=== PATIENT | male | born 2000 | race Caucasian/White ===

== ENCOUNTER 2020-05-29 17:52 | Emergency (ER) | payer OTHER, SELFPAY ==
--- NOTE | 2020-05-29 | XR_ITS ---
EXAMINATION: XR HAND, RIGHT CLINICAL INFORMATION: Pain status post crushing injury COMPARISON: None TECHNIQUE: PA, lateral, and oblique views of the right hand. FINDINGS: There is mild soft tissue swelling around the distal phalanx of the index finger. Bones appear normal. No fracture. Alignment is anatomic. Joint spaces are maintained. No erosions or soft tissue calcifications. IMPRESSION: Soft tissue swelling without fracture.
[2020-05-29 19:55] VITALS: BP 120/57; PULSE 65; RESP 18; TEMP 37.2; O2SAT 97; BMI 21.6
[2020-05-29] MEDS: Lidocaine HCl 1 % MPF 5 ML VIAL SUBCUT (20:39)
--- NOTE | 2020-05-29 21:19 | ED.WOUNDLAC ---
HPI - Wound/Laceration General Chief Complaint: Wound/Laceration Stated Complaint: FINGER LAC - IND Time Seen by Provider: 05/29/20 20:29 Source: patient Mode of arrival: ambulatory Limitations: no limitations History of Present Illness HPI narrative: 19-year-old male presents with a crush injury to the right index finger. He got his finger crushed in a car tire at work. Onset (ago): hour(s) ( Just prior to arrival) Location: other ( right index finger) Place: work Patient tetanus UTD: No Context: accidental Associated symptoms: pain Treatments prior to arrival: bandage Related Data Previous Rx's Medication Instructions Recorded amoxicillin-pot clavulanate 1 tab PO Q12H 10 Days #20 tab 05/29/20 [Augmentin] oxycodone 5 mg PO Q8H PRN #10 cap 05/29/20 Allergies Allergy/AdvReac Type Severity Reaction Status Date / Time No Known Allergies Allergy Verified 05/29/20 19:57 Review of Systems Review of Systems: Constitutional: No Weight loss, No Fever, No Chills, No Night Sweats, No Fatigue, No Malaise ENT/Mouth: No Hearing loss, No Ear Pain, No Nasal Congestion, No Sinus Pain, No Hoarseness, No sore throat, No Rhinorrhea, No Swallowing Difficulty Eyes: No Eye Pain, No Swelling, No Redness, No Foreign Body, No Discharge, No Vision Changes Cardiovascular: No Chest Pain, No SOB, No Dyspnea on Exertion, No Orthopnea, No Edema, No Palpitations Respiratory: No Cough, No Sputum, No Wheezing, No Smoke Exposure, No Dyspnea Gastrointestinal: No Nausea, No Vomiting, No Diarrhea, No Constipation, No abdominal Pain, No Hematochezia, No Melena Genitourinary: no irregular bleeding, No Dysuria, No Urinary Frequency, No Hematuria, No Urinary Incontinence, No Urgency, No Flank Pain, No Urinary Flow Changes, No Hesitancy Musculoskeletal: crush injury to right index finger, multiple skin lacerations to the pad of the index finger. Skin: No Skin Lesions, No rash Neuro: No Weakness, No Numbness, No Paresthesias, No Loss of Consciousness, No Dizziness, No Headache Psych: No Anxiety/Panic, No Depression, No SI/HI/AH/VH, No Social Issues, Heme/Lymph: No Bruising, No Bleeding,No Lymphadenopathy Endocrine: No Polyuria, No Polydipsia, No Temperature Intolerance PMF Past Medical History Attestation statement: The following information was validated with the patient. Medical History (Updated 05/29/20 @ 22:36 by Lubna Horta NP) Patient denies significant medical history Social History Social History Advance Directives: No Advance Directives Information Provided: No Physical Exam Vital Signs and I&O and Narrative: Vital Signs and I&O: Vital Signs Temp 98.9 F 05/29/20 21: Pulse 88 05/29/20 21:20 Resp 18 05/29/20 21:20 BP 128/64 05/29/20 21:20 Pulse Ox 99 05/29/20: Intake & Output 05/29/20 05/29/20 05/30/20 06:59 18:59 06:59 Weight 70.307 kg Body Mass Index 21.6 Appearance: Alert. Oriented X3. No acute distress. Eyes: Pupils equal, round and reactive to light. ENT: Pharynx normal. Neck: Normal inspection. Neck supple. CVS: Normal heart rate and rhythm. Pulses normal. Respiratory: No respiratory distress. Breath sounds normal. Abdomen: Soft and nontender. Skin: Complicated avulsion laceration to the right index finger, approximately 4 cm with 2 flaps. Otherwise Skin warm and dry. Normal skin color. Normal skin turgor. Extremities: no other injuries noted. Neuro: Oriented X 3. No motor deficit. No sensory deficit. Course Course Course Narrative: 19-year-old male presents with crush injury and laceration to the right index finger. We will update his Tdap vaccine, order x-rays x-rays are negative for fracture, laceration repaired, prepped and draped sterile fashion. Patient tolerated procedure well. Approximately 30 mL of blood loss. Brisk capillary refill and neurovascularly intact status post procedure. Patient does understand that he must return in 3 days for wound check. He will take antibiotics as scheduled. Will give pain management oxycodone 5 mg tablets. Procedures Laceration Laceration 1: Site: upper extremity Side (If applicable): right Size (cm): 4 Description: irregular and contaminated Depth: involves muscle layer Local Anesthetic: lidocaine 2% Amount of anesthesia used (mL): 6 Pre-repair: wound explored and irrigated extensively Skin layer closed with: nylon Size (cm): 5-0 Number of sutures: 10 Technique: simple, interrupted Nerve Block Nerve Block 1: Time out performed: Yes Local Anesthetic: lidocaine 2% Amount of anesthesia used (mL): 6 Side: right Nerve Blocks: digital Procedure Successful: Yes Patient Tolerated Procedure: well Complications: none MDM - Wound/Laceration Differential Diagnosis Differential diagnosis: Likely laceration and avulsion of skin Medical Records Attestation: I reviewed the patient's medical records. Lab Data Attestation: I reviewed the patient's lab results. Imaging Data hand x-ray: Attestation: I personally reviewed and interpreted this imaging study as follows: Radiologist's impression: FINDINGS: There is mild soft tissue swelling around the distal phalanx of the index finger. Bones appear normal. No fracture. Alignment is anatomic. Joint spaces are maintained. No erosions or soft tissue calcifications. IMPRESSION: Soft tissue swelling without fracture. Discharge Plan Discharge Clinical Impression: Laceration, Crush accident Patient Disposition: Home, Self-Care Instructions: Diphtheria/Acellular Pertussis/Tetanus Booster Vaccine (Tdap) (By..., Care For Your Stitches (ED), Laceration (ED), Finger Laceration (ED), Crush Injury (ED) Additional Instructions: please return in 3 days for wound evaluation. keep the wound clean and dry, do not soak the finger. You may shower and wash hands as needed. If you notice that your finger changes color, you lose sensation, or the pain and swelling increases please return sooner than 3 days. Thank you for choosing this emergency department for evaluation. Please follow-up with primary care physician as needed. Return to the emergency department for any new, concerning, or worsening symptoms. Prescriptions: New oxycodone 5 mg capsule 5 mg PO Q8H PRN (Reason: pain) Qty: 10 RF: 0 amoxicillin-pot clavulanate [Augmentin] 875-125 mg tablet 1 tab PO Q12H 10 Days Qty: 20 RF: 0 Referrals: Kirstin Marcelo [Physician] - 2 days ( right index crush injury) Interventions: ED Discharge Assessment Last Done: 05/29/20 22:53 Discharge Date/Time: 05/29/20 22:54
[2020-05-29 21:20] VITALS: BP 128/64; PULSE 88; RESP 18; TEMP 37.2; O2SAT 99
[2020-05-29] MEDS: Lidocaine HCl 2 % MPF 5 ML VIAL 10 ML SUBCUT (21:27)
[2020-05-29] MEDS: oxyCODONE HCl Immed Release 5 MG TABLET PO (22:49)
[2020-05-29] MEDS: Amoxicillin/Potassium Clav 875 MG TABLET PO (22:49)
== END 2020-05-29 22:54 | disposition home or self-care (01) ==
PROVIDERS: Emergency Provider Emergency Medicine
DX: S61.220A Laceration with foreign body of right index finger without damage to nail, initial encounter (principal); W23.0XXA Caught, crushed, jammed, or pinched between moving objects, initial encounter; Y93.89 Activity, other specified; Y92.59 Other trade areas as the place of occurrence of the external cause; Y99.0 Civilian activity done for income or pay
CPT/HCPCS: 12002; 73130; 90471; 90715; 99283

== ENCOUNTER 2020-06-03 20:27 | Emergency (ER) | payer OTHER, SELFPAY ==
[2020-06-03 20:56] VITALS: BP 116/44; PULSE 82; RESP 16; TEMP 36; O2SAT 99; BMI 20.9
--- NOTE | 2020-06-03 21:00 | ED.WOUNDLAC ---
HPI - Wound/Laceration General Chief Complaint: Wound/Laceration Stated Complaint: wound check Time Seen by Provider: 06/03/20 21:00 Source: patient Mode of arrival: ambulatory Limitations: no limitations History of Present Illness HPI narrative: 19-year-old male presents for a wound evaluation. He was seen on May 29, 2020 by this [employer] for a crush injury to the finger requiring 10 sutures. He does not describe any fevers, chills, nausea, vomiting, shortness of breath, palpitations, or loss of sensation to the right index finger. He has not taken the dressing down, has been taking his antibiotics as directed, and still has pain medications left from the prescription on 05/29/2020. Onset (ago): day(s) ( ) Location: other ( right index finger) Related Data Previous Rx's Medication Instructions Recorded amoxicillin-pot clavulanate 1 tab PO Q12H 10 Days #20 tab 05/29/20 [Augmentin] oxycodone 5 mg PO Q8H PRN #10 cap 05/29/20 Allergies Allergy/AdvReac Type Severity Reaction Status Date / Time No Known Allergies Allergy Verified 05/29/20 19:57 Review of Systems Review of Systems: Constitutional: No Weight loss, No Fever, No Chills, No Night Sweats, No Fatigue, No Malaise ENT/Mouth: No Hearing loss, No Ear Pain, No Nasal Congestion, No Sinus Pain, No Hoarseness, No sore throat, No Rhinorrhea, No Swallowing Difficulty Eyes: No Eye Pain, No Swelling, No Redness, No Foreign Body, No Discharge, No Vision Changes Cardiovascular: No Chest Pain, No SOB, No Dyspnea on Exertion, No Orthopnea, No Edema, No Palpitations Respiratory: No Cough, No Sputum, No Wheezing, No Smoke Exposure, No Dyspnea Gastrointestinal: No Nausea, No Vomiting, No Diarrhea, No Constipation, No abdominal Pain, No Hematochezia, No Melena Genitourinary: no irregular bleeding, No Dysuria, No Urinary Frequency, No Hematuria, No Urinary Incontinence, No Urgency, No Flank Pain, No Urinary Flow Changes, No Hesitancy Musculoskeletal: No joint pain, No Myalgias, No Joint Swelling Skin: positive laceration to the right index finger treated with sutures on 05/29/2020, No Skin Lesions, No rash Neuro: No Weakness, No Numbness, No Paresthesias, No Loss of Consciousness, No Dizziness, No Headache Psych: No Anxiety/Panic, No Depression, No SI/HI/AH/VH, No Social Issues, Heme/Lymph: No Bruising, No Bleeding,No Lymphadenopathy Endocrine: No Polyuria, No Polydipsia, No Temperature Intolerance [facility] Past Medical History Attestation statement: The following information was validated with the patient. Medical History Patient denies significant medical history Social History Social History Smoking Status: Never smoker Substance Use Type: Marijuana Advance Directives: No Advance Directives Information Provided: Yes Physical Exam Vital Signs: Vital Signs: Vital Signs Temp Pulse Resp BP Pulse Ox 06/03/20 20:56 96.8 F 82 16 116/44 L 99 Body Mass Index 20.9 Appearance: Alert. Oriented X3. No acute distress. Eyes: Pupils equal, round and reactive to light. ENT: Pharynx normal. Neck: Normal inspection. Neck supple. CVS: Normal heart rate and rhythm. Pulses normal. Respiratory: No respiratory distress. Breath sounds normal. Abdomen: Soft and nontender. Skin: right index finger wound healing well, skin flaps well approximated, no indication of erythema or swelling. Brisk capillary refill, neurovascularly intact. Strength 5/5 to all digits. Skin warm and dry. Normal skin color. Normal skin turgor. Extremities: No lower extremity edema. Neuro:No motor deficit. No sensory deficit. Course Course Course Narrative: Wound was evaluated, brisk capillary refill, no indication of infection. Plan of care is for patient to return in 4 days to have sutures removed. Patient verbalized understanding of and agrees to plan of care discharge home. MDM - Wound/Laceration Differential Diagnosis Differential diagnosis: Likely laceration Discharge Plan Discharge Clinical Impression: Visit for wound check Patient Disposition: Home, Self-Care Instructions: Care For Your Stitches (ED) Additional Instructions: your wound is healing well. Please keep it covered with gauze. You may take the dressing off at night. Do not swim or soak the finger until the sutures come out. Please come back in 4 days to have sutures removed. Thank you for choosing this emergency department for evaluation. Please follow-up with primary care physician as needed. Return to the emergency department for any new, concerning, or worsening symptoms. Prescriptions: No Action oxycodone 5 mg capsule 5 mg PO Q8H PRN (Reason: pain) Qty: 10 RF: 0 amoxicillin-pot clavulanate [Augmentin] 875-125 mg tablet 1 tab PO Q12H 10 Days Qty: 20 RF: 0 Stand Alone Forms: Work/School Release Interventions: ED Discharge Assessment Last Done: 06/03/20 21:30 Discharge Date/Time: 06/03/20 21:31
== END 2020-06-03 21:31 | disposition home or self-care (01) ==
LOC: HO.ED 21:08
PROVIDERS: Emergency Provider Internal Medicine
DX: Z48.00 Encounter for change or removal of nonsurgical wound dressing (principal)
CPT/HCPCS: 99282; 99283

== ENCOUNTER 2020-06-08 00:49 | Emergency (ER) | payer OTHER, SELFPAY ==
[2020-06-08 00:54] VITALS: BP 140/46; PULSE 86; RESP 16; TEMP 36; O2SAT 99; BMI 20.9
--- NOTE | 2020-06-08 01:23 | ED_ITS ---
HPI - Wound/Laceration General Chief Complaint: Wound/Laceration Stated Complaint: WOUND CHECK Time Seen by Provider: 06/08/20 01:12 Source: patient Mode of arrival: ambulatory Limitations: no limitations History of Present Illness HPI narrative: this is a 19-year-old male who presents for suture removal of right index finger after having injured it approximately 10 days ago. He denies any associated fevers, chills, redness, purulent discharge at the site and has continued to take the antibiotics as directed. Related Data Previous Rx's Medication Instructions Recorded amoxicillin-pot clavulanate 1 tab PO Q12H 10 Days #20 tab 05/29/20 [Augmentin] oxycodone 5 mg PO Q8H PRN #10 cap 05/29/20 Allergies Allergy/AdvReac Type Severity Reaction Status Date / Time No Known Allergies Allergy Verified 05/29/20 19:57 Review of Systems Review of Systems: Pertinent positives and negatives as stated in HPI and 10 point review systems otherwise negative. [facility] Past Medical History Source: nursing notes reviewed Medical History Patient denies significant medical history Social History Social History Smoking Status: Never smoker Substance Use Type: Marijuana Advance Directives: No Physical Exam Vital Signs: Vital Signs: Vital Signs Temp Pulse Resp BP Pulse Ox 06/08/20 00:54 96.8 F 86 16 140/46 H 99 Body Mass Index 20.9 VITAL SIGNS: Reviewed. GENERAL: Well developed, well nourished, in no acute distress. HEAD: Normocephalic/atraumatic, EYES: PERRLA, EOMI intact without pain, no nystagmus/pallor/icterus noted EARS: Ext canals without abnormality, TMs non-bulging and non-erythematous NOSE: Nares patent bilateral OROPHARYNX: no oral lesions noted, posterior pharynx clear and non-erythematous without noted tonsillar enlargement/erythema/exudates NECK: Supple, no adenopathy LUNGS: Normal breath sounds. No adventitious sounds or accessory muscle use. SpO2<99%> CARDIOVASCULAR: Regular rate and rhythm without noted murmurs, no JVD or lower extremity edema. ABDOMEN: Soft, non-tender, non-distended with bowel sounds. No rigidity. No guarding. No palpable masses or hernias noted MUSCULOSKELETAL: No tenderness, deformities, or effusions noted on gross inspection. EXTREMITIES: No cyanosis, clubbing or edema. Right index finger: Tissue is well-approximated and show signs of appropriate healing without any surrounding erythema or cellulitis. SKIN: Inspection of the skin reveals no rashes, ulcerations, jaundice, pallor, or petechiae. NEUROLOGIC: Alert and oriented x 4. Strength and sensation to light touch were grossly intact x 4. Course Course Course Narrative: This is a 19-year-old male with history and clinical presentation consistent with well-healed laceration to the right palmar aspect of the index finger. All sutures removed without complications and patient was instructed to cleanse with soap and water and apply antibiotic ointment afterwards and cover until wound is further healed. Discharge Plan Discharge Clinical Impression: Encounter for removal of sutures Patient Disposition: Home, Self-Care Instructions: Stitches Removal (ED) Additional Instructions: You may cleanse your hands with soap and water and then apply antibiotic ointment to your healing finger and keep covered at all times while at work. Please continue any antibiotics that you have been prescribed until they are entirely completed. The patient and/or family acknowledge understanding of results (as applicable), diagnosis, treatment plan, need for follow up, and symptoms that should prompt a return to the emergency room. Prescriptions: No Action oxycodone 5 mg capsule 5 mg PO Q8H PRN (Reason: pain) Qty: 10 RF: 0 amoxicillin-pot clavulanate [Augmentin] 875-125 mg tablet 1 tab PO Q12H 10 Days Qty: 20 RF: 0 Referrals: Physician,None [Primary Care Provider] - 2 days
== END 2020-06-08 01:38 | disposition home or self-care (01) ==
PROVIDERS: Emergency Provider Student in an Organized Health Care Education/Training Program
DX: Z48.02 Encounter for removal of sutures (principal)
CPT/HCPCS: 99283; 99284

== ENCOUNTER 2020-06-14 11:28 | Outpatient (REF) | payer OTHER, SELFPAY ==
[2020-06-14 11:51] LABS: COVID-19 Test Negative (Negative)
== END 2020-06-14 11:29 | disposition home or self-care (01) ==
LOC: HO.LAB 11:28
PROVIDERS: Visit Provider Internal Medicine
DX: Z20.828 Contact with and (suspected) exposure to other viral communicable diseases (principal)
CPT/HCPCS: 87635

== ENCOUNTER 2020-07-06 10:32 | Emergency (ER) | payer SELFPAY ==
[2020-07-06 10:55] VITALS: BP 128/78; PULSE 61; RESP 18; TEMP 37.4; O2SAT 99; BMI 20.9
--- NOTE | 2020-07-06 11:00 | ED.EXTPRO ---
HPI - Extremity Problem General Chief complaint: Extremity Injury, Upper Stated complaint: L WRIST PAIN INJ AT WORK Time Seen by Provider: 07/06/20 11:00 Source: patient Mode of arrival: ambulatory Limitations: no limitations History of Present Illness HPI Narrative: 19 y/o male presenting with left lower arm pain and swelling that startecd this morning after he was lifting wood to start a fire. He denies any known injury but after he was done he noticed he had some swelling to his left lower arm and it was painful to move. He states he waited a few hours but the pain persisted and was tender to touch. 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 MD Complaint: extremity pain and extremity swelling Onset (ago): hour(s) (4) Pain Consistency: constant Location: left and upper extremity Severity scale (1-10): 5 Quality: aching Radiation: none Relieving factors: rest Exacerbating factors: range of motion and palpation Associated symptoms: denies other symptoms Related Data Previous Rx's Medication Instructions Recorded amoxicillin-pot clavulanate 1 tab PO Q12H 10 Days #20 tab 05/29/20 [Augmentin] oxycodone 5 mg PO Q8H PRN #10 cap 05/29/20 Allergies Allergy/AdvReac Type Severity Reaction Status Date / Time No Known Allergies Allergy Verified 05/29/20 19:57 Review of Systems Cardiovascular: Cardiovascular: Reports no additional cardiovascular complaints Respiratory: Respiratory: Reports no additional respiratory complaints Gastrointestinal: Gastrointestinal: Reports no additional gastrointestinal complaints Musculoskeletal: Musculoskeletal: Denies deformity, Reports arthralgias, Reports joint swelling, Denies muscle weakness, Denies numbness, Denies stiffness and Denies tingling Integumentary/Breasts: Skin/Breast: Denies bleeding lesions, Denies pruritus, Denies erythema, Denies rash and Denies skin pain Neurologic: Denies numbness, Denies Sensory deficit (Neuro), Denies tingling and Denies paresthesias Hematologic/Lymphatic: Hematologic/Lymphatic: Reports no additional hematologic/lymphatic complaints [facility] Past Medical History Attestation statement: The following information was validated with the patient. Medical History Patient denies significant medical history Social History Social History Alcohol intake: never Smoking Status: Never smoker Substance Use Type: Marijuana Advance Directives: No Advance Directives Information Provided: Yes Physical Exam Vital Signs: Vital Signs: Last Vital Signs Temp 99.4 F 07/06/20 10:55 Pulse 61 07/06/20 10:55 Resp 18 07/06/20 10:55 BP 128/78 07/06/20 10:55 Pulse Ox 99 07/06/20 10:55 Body Mass Index 20.9 Appearance: Alert. Oriented X3. No acute distress. HEENT: normal inspection CVS: Normal heart rate and rhythm. Pulses normal. Respiratory: No respiratory distress. Skin: Skin warm and dry. Normal skin color. Normal skin turgor. No rashes. Extremities: left distal forearm with swelling and tenderness over distal 1/3 of ulna. NV intact. plasterer stucco strength normal. no obvious deformity. Neuro: Oriented X 3. No motor deficit. No sensory deficit. Neuro: Sensory Exam: No Sensory deficit (Neuro) Course Course Course Narrative: 19 y/o male here with left forearm/wrist pain after lifting wood. Possible occult fracture, will get XR to further assess. Reevaluation(s) Reevaluation #1: XR normal. Placed in JONELLE wrap for comfort. Will treat for soft tissue contusion. Stable for d/c. Critical Care Time Critical Care Time Critical Care Time: No Discharge Plan Discharge Clinical Impression: Contusion of forearm, left Qualifiers: Encounter type: initial encounter Qualified Code(s): S50.12XA - Contusion of left forearm, initial encounter Patient Disposition: Home, Self-Care Instructions: Contusion in Adults (ED) Additional Instructions: X-ray done today was normal. Use ice several times per day to help with pain and swelling. Use JONELLE wrap for comfort and support. Do not sleep with JONELLE wrap on. Take tylenol and/or motrin as needed for pain and discomfort. You may use your hand and wrist as tolerated. Prescriptions: No Action oxycodone 5 mg capsule 5 mg PO Q8H PRN (Reason: pain) Qty: 10 RF: 0 amoxicillin-pot clavulanate [Augmentin] 875-125 mg tablet 1 tab PO Q12H 10 Days Qty: 20 RF: 0 Stand Alone Forms: Work/School Release
--- NOTE | 2020-07-06 11:03 | XR_ITS ---
EXAMINATION: XR FOREARM, LEFT CLINICAL INFORMATION: Distal forearm pain and swelling. COMPARISON: None TECHNIQUE: AP and lateral views of the left forearm were obtained. FINDINGS: The bones and soft tissues are normal. No fracture. Imaged portions of the elbow and wrist are unremarkable. XR/XR forearm LT 2V IMPRESSION: Normal left forearm.
== END 2020-07-06 11:57 | disposition home or self-care (01) ==
PROVIDERS: Emergency Provider Emergency Medicine
DX: S50.12XA Contusion of left forearm, initial encounter (principal); M25.532 Pain in left wrist; F12.90 Cannabis use, unspecified, uncomplicated; X50.0XXA Overexertion from strenuous movement or load, initial encounter; X50.9XXA Other and unspecified overexertion or strenuous movements or postures, initial encounter; Y93.9 Activity, unspecified; Y92.9 Unspecified place or not applicable; Y99.0 Civilian activity done for income or pay; Z79.899 Other long term (current) drug therapy
CPT/HCPCS: 73090; 99283

== ENCOUNTER 2020-12-16 20:51 | Emergency (ER) | payer SELFPAY ==
[2020-12-16 21:46] VITALS: BP 132/60; PULSE 63; RESP 18; TEMP 36.8; O2SAT 99; BMI 18.1
[2020-12-17 02:32] VITALS: BP 123/70; RESP 16; TEMP 37; O2SAT 100
[2020-12-17 02:53] LABS: MANUAL DIFF FLAG NO
[2020-12-17 03:04] LABS: Basophils Percent Auto 0.6 % (0-2); Eosinophils Absolute Auto 0.2 X10*3/uL (0.0-0.4); Eosinophils Percent Auto 3.2 % (0-4); Hematocrit 44.7 % (42-52); Hemoglobin 14.9 g/dl (14.0-18.0); Imm Gran Abs Auto 0.02 X10*3/uL (0.00-0.03); Imm Gran Pct Auto 0.3 % (0.0-0.4); Lymphocytes Absolute Auto 2.3 X10*3/uL (1.2-4.9); Lymphocytes Percent Auto 31.5 % (20-40); Mean Corpuscular HGB Conc 33.3 g/dl (31.0-36.0); Mean Corpuscular Hemoglobin 32.5 pg (27.0-33.0); Mean Corpuscular Volume 97.4 fL (80-98); Mean Platelet Volume 9.9 fL (9.4-12.4); Monocytes Absolute Auto 0.5 X10*3/uL (0.1-1.2); Monocytes Percent Auto 7.5 % (2-11); Neutrophils Absolute Auto 4.1 X10*3/uL (2.0-8.3); Neutrophils Percent Auto 56.9 % (45-73); Platelet Count 206 X10*3/uL (160-400); Red Blood Count 4.59 X10*6/uL (4.60-5.80); White Blood Count 7.2 X10*3/uL (4.8-10.8)
[2020-12-17 03:08] LABS: Glucose Urine UA NEG (NEG); Leukocyte Esterase Urine NEG (NEG); Nitrite Urine NEG (NEG); Specific Gravity - Urine >= 1.030 (1.005-1.025); Urine Blood NEG (NEG); Urine Ketones NEG (NEG); Urine Protein NEG (NEG-TRACE)
[2020-12-17 03:09] LABS: Appearance Urine CLEAR; Color Urine YELLOW; UACC Culture Trigger NO
[2020-12-17] MEDS: Lidocaine HCl Viscous 2 % 15 ML SOLUTION 10 ML MUCOUS MEM (03:23)
[2020-12-17] MEDS: Magnesium Hydrox/Alum Hydrox 30 ML ORAL.SUSP PO (03:24)
[2020-12-17 03:31] LABS: Alanine Aminotransferase 20 U/L (0-40); Albumin Level 4.5 g/dL (3.5-5.0); Alkaline Phosphatase 78 U/L (39-117); Anion Gap 12 (12-20); Aspartate Amino Transferase 19 U/L (5-37); Bilirubin Total 0.3 mg/dL (0.0-1.0); Blood Urea Nitrogen 14 mg/dL (9-16); Calcium 9.5 mg/dL (8.4-10.2); Carbon Dioxide 28 mmol/L (22-29); Chloride 105 mmol/L (96-108); Creatinine Clr Calc Pharmacy 113.6; Estimated Glomerular Filt Rate > 60; Glucose Random 89 mg/dL (60-115); Lipase 26 U/L (8-78); Potassium 4.4 mmol/L (3.3-5.1); Sodium 141 mmol/L (135-145); Total Protein 6.8 g/dL (6.5-8.0)
--- NOTE | 2020-12-17 03:53 | ED.ABDPAIN ---
HPI - Abdominal Pain General Chief Complaint: Abdominal Pain Stated Complaint: ULCER IN STOMACH Time Seen by Provider: 12/17/20 01:45 Source: patient Mode of arrival: ambulatory History of Present Illness HPI narrative: 20-year-old male who reports with 2 weeks of epigastric abdominal discomfort, and endorses a history of ulcers as well as bloody diarrhea that has since resolved. Patient states that he was treating his upset stomach with NSAIDs, and realized later that he should have stopped using that. Otherwise, patient denies any fever, chills, night sweats and reports an unintentional weight loss of approximately 40 lb over the past month. Related Data Previous Rx's Medication Instructions Recorded amoxicillin-pot clavulanate 1 tab PO Q12H 10 Days #20 tab 05/29/20 [Augmentin] oxycodone 5 mg PO Q8H PRN #10 cap 05/29/20 sucralfate [Carafate] 10 ml PO BID #420 ml 12/17/20 Allergies Allergy/AdvReac Type Severity Reaction Status Date / Time No Known Allergies Allergy Verified 05/29/20 19:57 Review of Systems Review of Systems Pertinent positives and negatives as stated in HPI 10 point review of systems is otherwise negative. Physical Exam Vital Signs: Vital Signs: Last Vital Signs Temp 98.6 F 12/17/20 02:32 Pulse 63 12/16/20 21:46 Resp 16 12/17/20 02:32 BP 123/70 12/17/20 02:32 Pulse Ox 100 12/17/20 02:32 Body Mass Index 18.1 VITAL SIGNS: Reviewed. GENERAL: Well developed, well nourished, in no acute distress. HEAD: Normocephalic/atraumatic, EYES: PERRLA, EOMI OROPHARYNX: no oral lesions noted, posterior pharynx clear NECK: Supple, no adenopathy LUNGS: Normal breath sounds. No adventitious sounds or accessory muscle use. SpO2<100> CARDIOVASCULAR: Regular rate and rhythm without noted murmurs ABDOMEN: Soft, non-tender, non-distended with bowel sounds. NEUROLOGIC: Alert and oriented x 4. Course Course Course Narrative: 20-year-old male with history and clinical presentation consistent with gastritis versus ulcer. Review of all investigations negative for any acute findings of anemia. On re-evaluation patient reports resolution of all stomach symptoms after receiving the GI cocktail. All results and findings were discussed with patient at bedside and he was discharged in stable condition with instructions to follow-up with a primary care provider. MDM - Abdominal Pain Lab Data Result diagrams: 12/17/20 02:43 12/17/20 02:43 Labs: Lab Results 12/17/20 12/17/20 12/17/20 Range/Units 02:43 02:43 02:43 WBC 7.2 (4.8-10.8) X10*3/uL RBC 4.59 L (4.60-5.80) X10*6/uL Hgb 14.9 (14.0-18.0) g/dl Hct 44.7 (42-52) % MCV 97.4 (80-98) fL MCH 32.5 (27.0-33.0) pg MCHC 33.3 (31.0-36.0) g/dl RDW 13.0 (11.0-16.0) % Plt Count 206 (160-400) X10*3/uL MPV 9.9 (9.4-12.4) fL Immature Gran % (Auto) 0.3 (0.0-0.4) % Neut % (Auto) 56.9 (45-73) % Lymph % (Auto) 31.5 (20-40) % [place] % (Auto) 7.5 (2-11) % Eos % (Auto) 3.2 (0-4) % Baso % (Auto) 0.6 (0-2) % Lymph # (Auto) 2.3 (1.2-4.9) X10*3/uL [place] # (Auto) 0.5 (0.1-1.2) X10*3/uL Eos # (Auto) 0.2 (0.0-0.4) X10*3/uL Baso # (Auto) 0.0 (0.0-0.2) X10*3/uL Abs Immat Gran (auto) 0.02 (0.00-0.03) X10*3/uL Absolute Neuts (auto) 4.1 (2.0-8.3) X10*3/uL Absolute Nucleated RBC 0.000 (0.0-0.012) X10*3/uL Nucleated RBC % (auto) 0.0 (0.0-0.2) /100WBC Sodium 141 (135-145) mmol/L Potassium 4.4 (3.3-5.1) mmol/L Chloride 105 (96-108) mmol/L Carbon Dioxide 28 (22-29) mmol/L Anion Gap 12 (12-20) BUN 14 (9-16) mg/dL Creatinine 0.85 (0.5-1.4) mg/dL Estim Creat Clear Calc 113.6 Estimated GFR > 60 Random Glucose 89 (60-115) mg/dL Calcium 9.5 (8.4-10.2) mg/dL Total Bilirubin 0.3 (0.0-1.0) mg/dL AST 19 (5-37) U/L ALT 20 (0-40) U/L Alkaline Phosphatase 78 (39-117) U/L Total Protein 6.8 (6.5-8.0) g/dL Albumin 4.5 (3.5-5.0) g/dL Lipase 26 (8-78) U/L Urine Color YELLOW Urine Appearance CLEAR Urine pH 6.0 (5.0-8.0) Ur Specific [place] >= 1.030 H (1.005-1.025) Urine Protein NEG (NEG-TRACE) MG/DL Urine Glucose (UA) NEG (NEG) MG/DL Urine Ketones NEG (NEG) MG/DL Urine Blood NEG (NEG) Urine Nitrite NEG (NEG) Ur Leukocyte Esterase NEG (NEG) Discharge Plan Discharge Clinical Impression: Gastritis Patient Disposition: Home, Self-Care Instructions: Gastritis (ED), Gastroesophageal Reflux Disease in Children (ED), Diet for Stomach Ulcers and Gastritis (ED) Additional Instructions: 1. Stop taking Aleve, ibuprofen, Motrin as this will irritate your stomach further. 2. Continue to drink plenty of water as a medication you are being prescribed may cause you to become constipated. 3. Please follow up with the primary care provider for re-evaluation. Return to the emergency department for any acute worsening of your symptoms. Prescriptions: New sucralfate [Carafate] 100 mg/mL suspension 10 ml PO BID Qty: 420 RF: 0 No Action oxycodone 5 mg capsule 5 mg PO Q8H PRN (Reason: pain) Qty: 10 RF: 0 amoxicillin-pot clavulanate [Augmentin] 875-125 mg tablet 1 tab PO Q12H 10 Days Qty: 20 RF: 0 Referrals: Physician,None [Primary Care Provider] - 2 days PMFSH Past Medical History Source: nursing notes reviewed Medical History Patient denies significant medical history Stomach ulcer Social History Social History Alcohol intake: current Alcohol intake frequency: holidays/special occasions only Alcohol type: hard liquor Smoking Status: Current every day smoker Smoked in Last 30 Days: Yes Use of substances other than those prescribed or required for medical reasons: No Substance Use Type: Marijuana Substance Use Frequency: Daily Advance Directives: No
== END 2020-12-17 04:25 | disposition home or self-care (01) ==
PROVIDERS: Emergency Provider Student in an Organized Health Care Education/Training Program
DX: K29.70 Gastritis, unspecified, without bleeding (principal); R10.13 Epigastric pain; F12.90 Cannabis use, unspecified, uncomplicated; F17.200 Nicotine dependence, unspecified, uncomplicated
CPT/HCPCS: 36415; 80053; 81003; 83690; 85025; 99283; 99284